=== PATIENT | male | born 1960 | race Caucasian/White ===

== ENCOUNTER 2018-06-14 01:09 | Emergency (ER) | payer MEDICAID ==
[2018-06-14 01:15] VITALS: BP 120/94
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
== END 2018-06-14 01:56 | disposition home or self-care (01) ==
LOC: ED 01:09
DX: S01.81XA Laceration without foreign body of other part of head, initial encounter (principal); X99.0XXA Assault by sharp glass, initial encounter; Y93.89 Activity, other specified; Y92.009 Unspecified place in unspecified non-institutional (private) residence as the place of occurrence of the external cause; F17.200 Nicotine dependence, unspecified, uncomplicated
CPT/HCPCS: 12013; 99282; 99283